=== PATIENT | male | born 2000 | race Caucasian/White ===

== ENCOUNTER 2022-01-05 10:07 | Inpatient (IN) | payer OTHER ==
[~2022-01-05] VITALS: Ht 182.9 cm; Wt 77.3 kg
[2022-01-05 10:53] LABS: HEMATOCRIT 41.1 % (42.0-52.0); HEMOGLOBIN 14.1 g/dl (13.5-17.5); MEAN CORPUSCULAR HEMOGLOBIN 31.1 pg (27.0-33.0); MEAN CORPUSCULAR HGB CONC 34.3 g/dl (32.0-36.5); MEAN CORPUSCULAR VOLUME 90.7 fl (80.0-96.0); PLATELET COUNT, AUTOMATED 224 10^3/uL (150-450); RED BLOOD COUNT 4.53 10^6/uL (4.30-6.10); WHITE BLOOD COUNT 7.5 10^3/uL (4.0-10.0)
[2022-01-05 11:27] LABS: ACETAMINOPHEN LEVEL < 2.0 UG/ML (10.0-30.0); ALBUMIN 4.2 GM/DL (3.2-5.2); ALT/SGPT 27 U/L (12-78); BILIRUBIN,DIRECT 0.2 MG/DL (0.0-0.2); BILIRUBIN,TOTAL 0.6 MG/DL (0.2-1.0); BLOOD UREA NITROGEN 15 MG/DL (7-18); CALCIUM LEVEL 9.2 MG/DL (8.5-10.1); CARBON DIOXIDE LEVEL 26 MEQ/L (21-32); CHLORIDE LEVEL 107 MEQ/L (98-107); CREATININE FOR GFR 1.04 MG/DL (0.70-1.30); ETHYL ALCOHOL (ETHANOL) 0.004 % (0.000-0.010); GLUCOSE, FASTING 98 MG/DL (70-100); POTASSIUM SERUM 4.1 MEQ/L (3.5-5.1); SALICYLATE LEVEL < 1.7 MG/DL (5.0-30.0); SODIUM LEVEL 139 MEQ/L (136-145); TOTAL PROTEIN 7.5 GM/DL (6.4-8.2)
[2022-01-05 11:32] LABS: RSV AMPLIFICATION NEGATIVE (NEGATIVE)
[2022-01-05] MEDS ORDERED: HOME MED LIST COMPLETE! XX SCH (11:35)
[2022-01-05 12:30] LABS: AMPHETAMINES LEVEL URINE NEGATIVE (NEGATIVE); BARBITURATES URINE NEGATIVE (NEGATIVE); BENZODIAZEPINES URINE NEGATIVE (NEGATIVE); CANNABINOIDS URINE POSITIVE (NEGATIVE); COCAINE METABOLITE URINE NEGATIVE (NEGATIVE); METHADONE URINE NEGATIVE (NEGATIVE); OPIATES URINE NEGATIVE (NEGATIVE); PHENCYCLIDINE URINE NEGATIVE (NEGATIVE)
[2022-01-05] MEDS ORDERED: MAALOX 30 ML SUSP *UDC PO PRN (15:35)
[2022-01-05] MEDS ORDERED: traZODone 50 MG TAB PO PRN (15:35)
[2022-01-05] MEDS ORDERED: MOM 30ML SUSPENSION UDC PO PRN (15:35)
[2022-01-05] MEDS ORDERED: ACETAMINOPHEN TAB 650MG DOSE (2X325MG) PO PRN (15:35)
[2022-01-05 19:06] VITALS: BP 125/65
[2022-01-06 06:59] VITALS: BP 136/70
[2022-01-06 18:40] VITALS: BP 149/65
[2022-01-07 06:22] VITALS: BP 134/74
[2022-01-07 18:46] VITALS: BP 122/60
[2022-01-08 07:04] VITALS: BP 131/58
[2022-01-08 17:51] VITALS: BP 147/65
[2022-01-09 06:00] VITALS: BP 127/59
[2022-01-09 18:00] VITALS: BP 163/66
[2022-01-10 06:52] VITALS: BP 136/63
[2022-01-10 18:00] VITALS: BP 133/55
[2022-01-11 06:27] VITALS: BP 144/79
== END 2022-01-11 13:25 | disposition home or self-care (01) | DRG 881 ==
LOC: M ED 10:07 → M ED INP 15:31 → M PSY 17:50
PROVIDERS: ADMIT Psychiatry & Neurology Psychiatry; ATTEND Psychiatry & Neurology Psychiatry
DX: F43.21 Adjustment disorder with depressed mood (principal); R45.851 Suicidal ideations; Z63.4 Disappearance and death of family member; F17.290 Nicotine dependence, other tobacco product, uncomplicated; Z20.822 Contact with and (suspected) exposure to COVID-19; Z56.6 Other physical and mental strain related to work